=== PATIENT | male | born 1985 | race Caucasian/White ===

== ENCOUNTER 2023-11-30 13:14 | Emergency (ER) | payer SELFPAY ==
[2023-11-30 13:46] LABS: HEMOGLOBIN 15.6 gm/dl (14.0-18.0); MEAN CORPUSCULAR HGB CONC 33.9 g/dl (32.0-36.0); MEAN CORPUSCULAR VOLUME 91.5 fl (83.0-99.0); MEAN PLATELET VOLUME 9.3 fl (9.4-12.4); PLATELET COUNT,PLT 477 K/mm3 (150-400); RED BLOOD CELL COUNT 5.03 M/mm3 (4.52-5.90); WHITE BLOOD CELL COUNT,WBC 9.98 K/mm3 (3.9-11.3)
[2023-11-30] MEDS: Sodium Chloride 0.9% 1,000 ML IV STA (14:18)
[2023-11-30] MEDS: Ondansetron 4 MG/2 ML SDV IVPUSH ONE (14:18)
[2023-11-30] MEDS: cloNIDine 0.1 MG Tab PO ONE (14:18)
[2023-11-30] MEDS: LORazepam 2 MG/ML SDV IVPUSH ONE ×2 (14:19→15:23)
[2023-11-30 14:20] LABS: A/G RATIO 1.2 (1-2); ALANINE AMINOTRANSFERASE,ALT 23 U/L (16-63); ALBUMIN 4.6 g/dl (3.4-5.0); ALKALINE PHOSPHATASE 111 U/L (46-116); ANION GAP 15.2 (5-15); ASPARTATE AMNIOTRANSFERASE,AST 11 U/L (15-37); BILIRUBIN TOTAL 0.6 mg/dL (0.2-1.0); BLOOD UREA NITROGEN,BUN 12 mg/dL (7-18); BUN/CREATININE RATIO 13.3 (14-18); CALCIUM 9.9 mg/dL (8.5-10.1); CARBON DIOXIDE,CO2 27 mEq/L (21-32); CHLORIDE,CL 99 mEq/L (98-107); CREATININE 0.9 mg/dL (0.7-1.3); ESTIMATED GFR 111 mL/min (>60); GLUCOSE RANDOM 153 mg/dL (70-99); POTASSIUM,K 3.2 mEq/L (3.5-5.1); PROTEIN TOTAL,TP 8.4 g/dl (6.4-8.2); SODIUM,NA 138 mEq/L (136-145); TSH 0.346 uIU/mL (0.358-3.74)
[2023-11-30 14:40] LABS: ACETAMINOPHEN 0 ug/mL (10-30)
[2023-11-30 14:41] LABS: BAND PERCENT MAN 0 % (0-10); BASOPHILS PERCENT MAN 1 (0.2-1.2); EOSINOPHILS PERCENT MAN 1 % (0.8-7.0); LYMPHOCYTES % ATYPICAL MANUAL 0 %; LYMPHOCYTES PERCENT MAN 11 % (20-40); MONOCYTES PERCENT MAN 1 % (2-10)
[2023-11-30 14:42] LABS: PLATELET COUNT ESTIMATE INCREASED; POLYCHROMASIA 1+ SLIGHT; STOMATOCYTES 1+ SLIGHT; TOXIC GRANULATION 1+ SLIGHT
[2023-11-30 14:58] LABS: BARBITURATE SCREEN,URINE NEGATIVE (CUTOFF=200); BENZODIAZEPINES SCREEN,URINE NEGATIVE (CUTOFF=150); BUPRENORPHINE SCREEN,URINE NEGATIVE (CUTOFF=10); METHADONE SCREEN, URINE NEGATIVE (CUT0FF=200); METHAMPHETAMINES SCREEN, URINE NEGATIVE (CUTOFF=500); OXYCODONE SCREEN,URINE NEGATIVE (CUT0FF=100); THC SCREEN,URINE 20 NG/ML NEGATIVE (CUTOFF=50)
[2023-11-30 15:00] LABS: AMPHETAMINES SCREEN, URINE NEGATIVE (CUTOFF=500)
[2023-11-30] MEDS: Prochlorperazine 10 MG/2 ML SDV IVPUSH ONE (15:25)
[2023-11-30] MEDS: diphenhydrAMINE 50 MG/ML SDV IVPUSH ONE (15:26)
[2023-11-30] MEDS: Potassium Chloride 20 MEQ Tab.ER PO ONE (19:05)
[2023-11-30] MEDS: Ketorolac 30 MG/ML SDV IVPUSH ONE (19:56)
[2023-11-30] MEDS: LORazepam 1 MG Tab PO ONE (22:42)
[2023-12-01] MEDS: Acetaminophen 325 MG Tab PO ONE (02:09)
[2023-12-01] MEDS: Metoclopramide 10 MG/2 ML SDV IVPUSH ONE ×2 (08:36→17:05)
[2023-12-01] MEDS: LORazepam 2 MG/ML SDV IVPUSH ONE ×2 (08:37→17:04)
[2023-12-01] MEDS: cloNIDine 0.1 MG Tab PO ONE ×2 (08:38→19:53)
[2023-12-01] MEDS ORDERED: LORazepam 2 MG/ML SDV IVPUSH PRN (16:35)
[2023-12-01] MEDS: Dicyclomine 10 MG Cap PO ONE (19:14)
[2023-12-01] MEDS: Hyoscyamine 0.125 MG Tab.SL SL ONE (19:14)
== END 2023-12-01 20:11 | disposition other institution (70) ==
LOC: JD.ED 13:14
DX: F11.13 Opioid abuse with withdrawal (principal); Z79.899 Other long term (current) drug therapy
CPT/HCPCS: 36415; 80053; 80143; 80179; 80306; 80307; 84443; 85007; 85027; 93005; 96361; 96374; 96375; 96376; 99285; A9270; J0780; J1885; J2060; J2405; J2765; J7030; 93010; 99284